=== PATIENT | female | born 1995 | race American Indian/Alaskan Native ===

== ENCOUNTER 2017-03-15 08:50 | Inpatient (IN) | payer MEDICAID ==
[2017-03-15] MEDS ORDERED: Sodium Chloride 0.9% 10 ML Syringe FLUSH PRN ×2 (10:38→10:52)
[2017-03-15] MEDS ORDERED: Carboprost Tromethamine 250 MCG/1 ML Amp IM PRN (10:38)
[2017-03-15] MEDS ORDERED: Lidocaine 1% 30 ML SDV INJECT PRN (10:38)
[2017-03-15] MEDS ORDERED: fentaNYL 100 MCG/2 ML SDV IVPUSH PRN (10:38)
[2017-03-15] MEDS ORDERED: Acetaminophen 325 MG Tab PO PRN (10:38)
[2017-03-15] MEDS ORDERED: Lactated Ringers 500 ML IV ONE (10:38)
[2017-03-15] MEDS ORDERED: Misoprostol 400 MCG (4 X 100 MCG TAB) RECTAL PRN (10:38)
[2017-03-15] MEDS ORDERED: Ondansetron 4 MG/2 ML SDV IV PRN (10:38)
[2017-03-15] MEDS ORDERED: Nalbuphine 20 MG/1 ML Amp IVPUSH PRN (10:38)
[2017-03-15] MEDS ORDERED: Butorphanol 2 MG/ML SDV IVPUSH PRN (10:38)
[2017-03-15] MEDS ORDERED: Methylergonovine 0.2 MG/1 ML Amp IM PRN (10:38)
[2017-03-15] MEDS ORDERED: Zolpidem 5 MG Tab PO PRN (10:52)
[2017-03-15] MEDS ORDERED: Benzocaine/Menthol 20%-0.5% Spray 56 GM Canister TOP PRN (10:52)
[2017-03-15] MEDS ORDERED: Simethicone 80 MG Tab.Chew PO PRN (10:52)
[2017-03-15] MEDS ORDERED: Oxytocin 10 Units/1 ML SDV IM PRN (10:52)
[2017-03-15] MEDS ORDERED: Docusate Sodium 100 MG Cap PO PRN (10:52)
[2017-03-15] MEDS ORDERED: fentaNYL 100 MCG/2 ML SDV ONE (11:37)
[2017-03-15] MEDS: Lactated Ringers 1,000 ML IV SCH ×2 (11:50→13:10)
--- NOTE | 2017-03-15 12:04 | PCM.SN ---
- Free Text/Narrative Note: Intrathecal. Sitting position, sterile prep and drape. 1 % lidocaine w bicarb for skinwheal to L2 L3 interspace, introducer, 24 pencan x 1, Pos CSF, neg Heme , neg parasthesia. 15 mcg PF sufenta, 35 mcg PF fentanyl,0.4 ml PF NS and 6 mg of 0.75% Pf bupivacaine injected after CSF aspiration. Pt to L lateral side. Procedure time 1140 to 1205
[2017-03-15] MEDS ORDERED: Oxytocin/Normal Saline 30 UNIT/500 ML BAG IV SCH (14:45)
--- NOTE | 2017-03-15 15:26 | PCM.DEL ---
L & D Note - General Info Date of Service: 03/15/17 (1512) Mother's Due Date: 03/12/17 (40 3/7 weeks gestation) - Delivery Note Labor: Spontaneous Delivery Outcome: Livebirth Delivery Mode: Spontaneous Presentation: Vertex Nuchal Cord: None Anesthesia Type: None Amniotic Fluid Description: Clear Episiotomy Type: None Laceration: None Cord: 3 Vessels Resuscitation Needed: No : Suctioned, Bulb Syringe, Warmed, [place] Used, Warmer Used Provider: Wu Burger Score 1 min: 9 Score 5 min: 9 Second Stage Interventions: Reports: Pushing Effectively Delivery Comments (Free Text/Narrative):: , OA, Viable male infant, OA over intact perineum Cord 3 vessel not around neck. placenta delivered by simple expression intact. Labia, vagina and cervix inspected and intact. Mother and infant in good condition. No complications noted. Viable male 7 lbs 3 oz , 19 inches long. - General Info Date of Service: 03/15/17 Functional Status: Reports: Pain Controlled - Review of Systems General: Reports: No Symptoms HEENT: Reports: No Symptoms Pulmonary: Reports: No Symptoms Cardiovascular: Reports: No Symptoms Gastrointestinal: Reports: No Symptoms Genitourinary: Reports: No Symptoms Musculoskeletal: Reports: No Symptoms Skin: Reports: No Symptoms Neurological: Reports: No Symptoms Psychiatric: Reports: No Symptoms - Patient Data Weight - Most Recent: 204 lb Lab Results Last 24 Hours: Laboratory Results - last 24 hr 03/15/17 03/15/17 Range/Units 10:00 11:00 WBC 11.2 H (5.0-10.0) 10^3/uL RBC 4.18 L (4.2-5.4) 10^6/uL Hgb 11.1 L D (12.0-16.0) g/dL Hct 34.7 L (37.0-47.0) % MCV 83.0 (80-100) fL MCH 26.6 L (27.0-34.0) pg MCHC 32.0 L (33.0-35.0) g/dL Plt Count 224 (150-450) 10^3/uL Urine Opiates Screen Negative (NEGATIVE) Ur Oxycodone Screen Negative (NEGATIVE) Urine Methadone Screen Negative (NEGATIVE) Ur Barbiturates Screen Negative (NEGATIVE) U Tricyclic Antidepress Negative (NEGATIVE) Ur Phencyclidine Scrn Negative (NEGATIVE) Ur Amphetamine Screen Negative (NEGATIVE) U Methamphetamines Scrn Negative (NEGATIVE) Urine MDMA Screen Negative (NEGATIVE) U Benzodiazepines Scrn Negative (NEGATIVE) Urine Cocaine Screen Negative (NEGATIVE) U Marijuana (THC) Screen Negative (NEGATIVE) Med Orders - Current: Current Medications Acetaminophen (Tylenol) 650 mg PO Q4H PRN PRN Reason: Pain (Mild 1-3) and fever Benzocaine/Menthol (Dermoplast Pain Relief [place]) 0 gm TOP Q4H PRN PRN Reason: Perineal comfort measures Butorphanol Tartrate (Stadol) 1 mg IVPUSH Q3H PRN PRN Reason: Pain Carboprost Tromethamine (Hemabate Ds) 250 mcg IM ASDIRECTED PRN PRN Reason: HEMORRHAGE Docusate Sodium (Colace) 100 mg PO BID PRN PRN Reason: Constipation Fentanyl (Sublimaze) 100 mcg IVPUSH Q1H PRN PRN Reason: Pain (moderate 4-6) Ferrous Sulfate (Ferrous Sulfate) 325 mg PO WITHBREAKFAST TL Lactated Ringer's (Ringers, Lactated) 1,000 mls @ 125 mls/hr IV ASDIRECTED TL Oxytocin/Sodium Chloride (Pitocin In Ns 30 Unit/500 Ml) 30 unit in 500 mls @ 2 mls/hr IV TITRATE TL; 2 MUNITS/MIN PRN Reason: Protocol Ibuprofen (Motrin) 800 mg PO Q8H PRN PRN Reason: Mild Pain or Fever Lidocaine HCl (Xylocaine-Mpf 1%) 10 ml INJECT ASDIRECTED PRN PRN Reason: Perineal Repair Methylergonovine Maleate (Methergine) 0.2 mg IM ASDIRECTED PRN PRN Reason: Hemorrhage Misoprostol (Cytotec) 800 mcg RECTAL ASDIRECTED PRN PRN Reason: Hemorrhage Nalbuphine HCl (Nubain) 10 mg IVPUSH Q3H PRN PRN Reason: Pain (moderate 4-6) Ondansetron HCl (Zofran) 4 mg IV Q4H PRN PRN Reason: Nausea/Vomiting Oxytocin (Pitocin) 10 unit IM ONETIME PRN PRN Reason: Bleeding Prenat Multivit/Real Estate Manager/Iron/Folic Ac ( Plus Iron) 1 each PO DAILY [facility] Simethicone (Simethicone) 80 mg PO Q4H PRN PRN Reason: Gas Sodium Chloride (Saline Flush) 10 ml FLUSH ASDIRECTED PRN PRN Reason: Keep Vein Open Sodium Chloride (Saline Flush) 10 ml FLUSH ASDIRECTED PRN PRN Reason: Keep Vein Open Zolpidem Tartrate (Ambien) 5 mg PO BEDTIME PRN PRN Reason: Insomnia Discontinued Medications Fentanyl (Sublimaze) Confirm Administered Dose 100 mcg .ROUTE .STK-MED ONE Stop: 03/15/17 11:38 Lactated Ringer's (Ringers, Lactated) 500 mls @ 125 mls/hr IV .BOLUS ONE Stop: 03/15/17 14:37 Sufentanil Citrate (Sufenta) Confirm Administered Dose 50 mcg .ROUTE .STK-MED ONE Stop: 03/15/17 11:38 - Problem List Review Problem List Initiated/Reviewed/Updated: Yes - My Orders Last 24 Hours: My Active Orders 03/15/17 10:38 Patient Status [ADT] Routine Communication Order [RC] ASDIRECTED May Shower [RC] ASDIRECTED Notify Provider Vital Signs OB [RC] ASDIRECTED Notify Provider [RC] PRN Up ad Shea [RC] ASDIRECTED Vital Signs [RC] PER UNIT ROUTINE Acetaminophen [Tylenol] 650 mg PO Q4H PRN Butorphanol [Stadol] 1 mg IVPUSH Q3H PRN Carboprost Tromethamine [Hemabate DS] 250 mcg IM ASDIRECTED PRN Lidocaine 1% [Xylocaine-MPF 1%] 10 ml INJECT ASDIRECTED PRN Methylergonovine [Methergine] 0.2 mg IM ASDIRECTED PRN Misoprostol [Cytotec] 800 mcg RECTAL ASDIRECTED PRN Nalbuphine [Nubain] 10 mg IVPUSH Q3H PRN Ondansetron [Zofran] 4 mg IV Q4H PRN Sodium Chloride 0.9% [Saline Flush] 10 ml FLUSH ASDIRECTED PRN fentaNYL [Sublimaze] 100 mcg IVPUSH Q1H PRN Electronic Heart Tones Internal [WOMSER] Per Unit Routine Peripheral IV Insertion Adult [OM.PC] Routine Saline Lock Insert [OM.PC] Routine Resuscitation Status Routine 03/15/17 10:45 Lactated Ringers [Ringers, Lactated] 1,000 ml IV ASDIRECTED 03/15/17 10:50 Peripheral IV Care [RC] . DIRECTED Pump Management, Intrathecal [RC] ASDIRECTED 03/15/17 10:52 Up ad Shea [RC] ASDIRECTED Benzocaine/Menthol [Dermoplast Pain Relief [place]] See Dose Instructions TOP Q4H PRN Docusate Sodium [Colace] 100 mg PO BID PRN Ibuprofen [Motrin] 800 mg PO Q8H PRN Oxytocin [Pitocin] 10 unit IM ONETIME PRN Simethicone 80 mg PO Q4H PRN Sodium Chloride 0.9% [Saline Flush] 10 ml FLUSH ASDIRECTED PRN Zolpidem [Ambien] 5 mg PO BEDTIME PRN Assess Lochia [WOMSER] Per Unit Routine Assess Uterine Involution [WOMSER] Per Unit Routine Breast Pump [WOMSER] Per Unit Routine Ice Therapy [OM.PC] Per Unit Routine Perineal Care [OM.PC] Per Unit Routine Peripheral IV Discontinue [OM.PC] Routine Saline Lock Insert [OM.PC] Urgent Sitz Bath [OM.PC] Per Unit Routine 03/15/17 10:57 Cooling Warming Measures [RC] ASDIRECTED 03/15/17 14:45 Oxytocin/Normal Saline [Pitocin in NS 30 UNIT/500 ML] 30 unit in 500 ml IV TITRATE 03/15/17 Breakfast Clear Liquid Diet [DIET] 03/15/17 Dinner Regular Diet [DIET] 03/16/17 06:00 CBC W/O DIFF,HEMOGRAM [HEME] Routine 03/16/17 08:00 Ferrous Sulfate 325 mg PO WITHBREAKFAST 03/16/17 09:00 Vit with Ca/FA/Iron [ Plus Iron] 1 each PO DAILY
--- NOTE | 2017-03-15 16:17 | HP ---
CHIEF COMPLAINT: "I think I am in labor." HISTORY OF PRESENT ILLNESS: Ms. Ruiz is a 21-year-old, 4, para 3-0- 0-3, female, last menstrual period unknown, EDC of 03/12/2017, EGA of 40 and 3/7 weeks' gestation by a 27-and-2/7-week ultrasound, who reports to Labor and Delivery with increasing force and frequency of contractions. She denies any nausea, vomiting, or diarrhea. No fever or chills. No hematochezia, hematemesis, or hematuria. No dysuria, frequency, or urgency with urination. No leg pain or leg edema. She is having contraction, discomfort, and also pain in her back off and on. She was seen a couple of days ago, was noted to be 1 cm dilated; now she is 3 to 4 cm, 70%, -2, mid position, and uncomfortable. PAST MEDICAL HISTORY: She denies any anemia, asthma, diabetes, cancer, hypertension, heart disease, thyroid disease, thromboembolic disease, seizure disorder, lung problems, kidney problems, breast lesions, or blood transfusions. FAMILY HISTORY: Positive for hypertension, ND, diabetes, but no history of cancer, thyroid disease, kidney problems, or lung problems. SOCIAL HISTORY: She denies any tobacco use, alcohol use, or illicit drug use. She has a significant other who is with her. OBSTETRICAL/WORKFORCE DEVELOPMENT SPECIALIST HISTORY: 1. 03/02/2012, delivery of a viable female , weighing 2778 g in [place] at 40 and 3/7 weeks' gestation via normal spontaneous vaginal delivery. 2. 05/11/2014, delivery of a viable male , weighing 2815 g via normal spontaneous vaginal delivery at 38 and 6/7 weeks' gestation. Two-vessel umbilical cord. 3. 09/06/2015, delivery of a viable female infant, weighing 3175 g at 38 and 3/7 weeks' gestation via normal spontaneous vaginal delivery in [place]. ALLERGIES: No known drug allergies. PAST SURGICAL HISTORY: She had teeth surgery at the age of 3 with some sort of anesthetic response. They felt might be from over medication. REVIEW OF SYSTEMS: All pertinent positive and negative review of systems per HPI. All other systems reviewed negative. A 10 point review of systems discussed with the patient. She has no issues. LABORATORY DATA: Blood type A negative. Antibody screen negative. Rubella immune. RPR nonreactive. Hepatitis B surface antigen negative. HIV negative. Hepatitis C nonreactive group B strep, vaginal culture not accomplished. OBJECTIVE: Vital Signs: Stable. Afebrile. HEENT: Unremarkable. Neck: Supple without adenopathy. No thyromegaly. Lungs: Clear to auscultation. No wheezing, rhonchi, or rales. Cardiovascular: Regular rate and rhythm without murmurs. Abdomen: Soft, nontender, gravid. Fundal height 30 cm. heart tones in the 130s to 140s, reactive strip, category I strip. Good accelerations noted. Back: No CVA tenderness. Genitourinary: Cervix is 3 to 4 cm dilated on admission, now 4 cm dilated, 70% effaced, -2 station. Bulging bag of blanc. Artificial rupture of membranes with clear fluid noted. Extremities: No edema, erythema, or tenderness noted. DTRs 2+/4 in all areas. No clonus. ASSESSMENT: 1. A 40-and-3/7-week intrauterine . 2. Active labor. 3. Artificial rupture of membranes with clear fluid. 4. Limited care. She had 1 visit in the office, 2 visits in Labor and Delivery. PLAN: 1. Expect vaginal delivery. 2. Urine drug screen accomplished. 3. Expect the patient to have intrathecal for pain control. 4. All questions answered. [facility] /[id number]
[2017-03-15] MEDS: Ibuprofen 800 MG Tab PO PRN (22:39)
--- NOTE | 2017-03-16 04:23 | PCM.PNPP ---
- General Info Date of Service: 03/16/17 (PPD # 1 S/P ) Functional Status: Reports: Pain Controlled, Tolerating Diet, Ambulating, Urinating - Review of Systems General: Reports: No Symptoms HEENT: Reports: No Symptoms Pulmonary: Reports: No Symptoms Cardiovascular: Reports: No Symptoms Gastrointestinal: Reports: No Symptoms Genitourinary: Reports: No Symptoms Musculoskeletal: Reports: No Symptoms Skin: Reports: No Symptoms Neurological: Reports: No Symptoms Psychiatric: Reports: No Symptoms - General Info Date of Service: 03/16/17 (PPD # 1 S/P ) - Patient Data Vital Signs - Most Recent: Last Vital Signs Temp 98.8 F 03/15/17 23:11 Pulse 102 H 03/15/17 23:11 Resp 16 03/15/17 23:11 BP 106/54 L 03/15/17 23:11 Pulse Ox 100 03/15/17 23:11 Weight - Most Recent: 204 lb I&O - Last 24 Hours: Intake & Output 03/15/17 03/15/17 03/16/17 14:59 22:59 06:59 Intake Total 1999 500 Balance 1999 500 Lab Results - Last 24 Hours: Laboratory Results - last 24 hr 03/15/17 03/15/17 Range/Units 10:00 11:00 WBC 11.2 H (5.0-10.0) 10^3/uL RBC 4.18 L (4.2-5.4) 10^6/uL Hgb 11.1 L D (12.0-16.0) g/dL Hct 34.7 L (37.0-47.0) % MCV 83.0 (80-100) fL MCH 26.6 L (27.0-34.0) pg MCHC 32.0 L (33.0-35.0) g/dL Plt Count 224 (150-450) 10^3/uL Urine Opiates Screen Negative (NEGATIVE) Ur Oxycodone Screen Negative (NEGATIVE) Urine Methadone Screen Negative (NEGATIVE) Ur Barbiturates Screen Negative (NEGATIVE) U Tricyclic Antidepress Negative (NEGATIVE) Ur Phencyclidine Scrn Negative (NEGATIVE) Ur Amphetamine Screen Negative (NEGATIVE) U Methamphetamines Scrn Negative (NEGATIVE) Urine MDMA Screen Negative (NEGATIVE) U Benzodiazepines Scrn Negative (NEGATIVE) Urine Cocaine Screen Negative (NEGATIVE) U Marijuana (THC) Screen Negative (NEGATIVE) Med Orders - Current: Current Medications Acetaminophen (Tylenol) 650 mg PO Q4H PRN PRN Reason: Pain (Mild 1-3) and fever Benzocaine/Menthol (Dermoplast Pain Relief [place]) 0 gm TOP Q4H PRN PRN Reason: Perineal comfort measures Butorphanol Tartrate (Stadol) 1 mg IVPUSH Q3H PRN PRN Reason: Pain Carboprost Tromethamine (Hemabate Ds) 250 mcg IM ASDIRECTED PRN PRN Reason: HEMORRHAGE Docusate Sodium (Colace) 100 mg PO BID PRN PRN Reason: Constipation Last Admin: 03/15/17 22:39 Dose: 100 mg Fentanyl (Sublimaze) 100 mcg IVPUSH Q1H PRN PRN Reason: Pain (moderate 4-6) Ferrous Sulfate (Ferrous Sulfate) 325 mg PO WITHBREAKFAST TL Lactated Ringer's (Ringers, Lactated) 1,000 mls @ 125 mls/hr IV ASDIRECTED TL Last Admin: 03/15/17 13:10 Dose: 125 mls/hr Oxytocin/Sodium Chloride (Pitocin In Ns 30 Unit/500 Ml) 30 unit in 500 mls @ 2 mls/hr IV TITRATE TL; 2 MUNITS/MIN PRN Reason: Protocol Last Titration: 03/15/17 18:30 Dose: 0 munits/min, 0 mls/hr Ibuprofen (Motrin) 800 mg PO Q8H PRN PRN Reason: Mild Pain or Fever Last Admin: 03/15/17 22:39 Dose: 800 mg Lidocaine HCl (Xylocaine-Mpf 1%) 10 ml INJECT ASDIRECTED PRN PRN Reason: Perineal Repair Methylergonovine Maleate (Methergine) 0.2 mg IM ASDIRECTED PRN PRN Reason: Hemorrhage Misoprostol (Cytotec) 800 mcg RECTAL ASDIRECTED PRN PRN Reason: Hemorrhage Nalbuphine HCl (Nubain) 10 mg IVPUSH Q3H PRN PRN Reason: Pain (moderate 4-6) Ondansetron HCl (Zofran) 4 mg IV Q4H PRN PRN Reason: Nausea/Vomiting Last Admin: 03/15/17 11:40 Dose: 4 mg Oxytocin (Pitocin) 10 unit IM ONETIME PRN PRN Reason: Bleeding Prenat Multivit/Attendant [place]/Iron/Folic Ac ( Plus Iron) 1 each PO DAILY TL Simethicone (Simethicone) 80 mg PO Q4H PRN PRN Reason: Gas Sodium Chloride (Saline Flush) 10 ml FLUSH ASDIRECTED PRN PRN Reason: Keep Vein Open Sodium Chloride (Saline Flush) 10 ml FLUSH ASDIRECTED PRN PRN Reason: Keep Vein Open Zolpidem Tartrate (Ambien) 5 mg PO BEDTIME PRN PRN Reason: Insomnia Discontinued Medications Fentanyl (Sublimaze) Confirm Administered Dose 100 mcg .ROUTE .STK-MED ONE Stop: 03/15/17 11:38 Last Admin: 03/15/17 22:32 Dose: Not Given Lactated Ringer's (Ringers, Lactated) 500 mls @ 125 mls/hr IV .BOLUS ONE Stop: 03/15/17 14:37 Last Admin: 03/15/17 11:25 Dose: 999 mls/hr Sufentanil Citrate (Sufenta) Confirm Administered Dose 50 mcg .ROUTE .STK-MED ONE Stop: 03/15/17 11:38 Last Admin: 03/15/17 22:32 Dose: Not Given - Infant Interaction Disposition, : in Room with Family Infant Interaction: Holding Feeding: Bottle Fed Infant Support Person: Significant Other - Recovery Exam Fundal Tone: Firm Fundal Level: 1 Fingerbreadths Below Umbilicus Fundal Placement: Midline Lochia Amount: Small Lochia Color: Rubra/Red Perineum Description: Intact, Minimal Bruising/Swelling Episiotomy/Laceration: None - Exam General: Alert, Oriented, Cooperative HEENT: Pupils Equal, Pupils Reactive, Mucous Membr. Moist/[place] Neck: Supple Lungs: Clear to Auscultation, Normal Respiratory Effort Cardiovascular: Regular Rate, Regular Rhythm, No Murmurs GI/Abdominal Exam: Normal Bowel Sounds, Soft, Non-Tender, No Distention Extremities: Normal Inspection, Normal Range of Motion, Non-Tender, No Pedal Edema Skin: Warm, Dry, Intact Wound/Incisions: Healing Well Neurological: No New Focal Deficit, Normal Gait, Normal Speech, Normal Tone Psy/Mental Status: Alert, Normal Affect, Normal Mood - Problem List Review Problem List Initiated/Reviewed/Updated: Yes - My Orders Last 24 Hours: My Active Orders 03/15/17 10:38 Patient Status [ADT] Routine May Shower [RC] ASDIRECTED Notify Provider Vital Signs OB [RC] ASDIRECTED Notify Provider [RC] PRN Up ad Shea [RC] ASDIRECTED Vital Signs [RC] 08,20 Acetaminophen [Tylenol] 650 mg PO Q4H PRN Butorphanol [Stadol] 1 mg IVPUSH Q3H PRN Carboprost Tromethamine [Hemabate DS] 250 mcg IM ASDIRECTED PRN Lidocaine 1% [Xylocaine-MPF 1%] 10 ml INJECT ASDIRECTED PRN Methylergonovine [Methergine] 0.2 mg IM ASDIRECTED PRN Misoprostol [Cytotec] 800 mcg RECTAL ASDIRECTED PRN Nalbuphine [Nubain] 10 mg IVPUSH Q3H PRN Ondansetron [Zofran] 4 mg IV Q4H PRN Sodium Chloride 0.9% [Saline Flush] 10 ml FLUSH ASDIRECTED PRN fentaNYL [Sublimaze] 100 mcg IVPUSH Q1H PRN Electronic Heart Tones Internal [WOMSER] Per Unit Routine Peripheral IV Insertion Adult [OM.PC] Routine Saline Lock Insert [OM.PC] Routine Resuscitation Status Routine 03/15/17 10:45 Lactated Ringers [Ringers, Lactated] 1,000 ml IV ASDIRECTED 03/15/17 10:50 Pump Management, Intrathecal [RC] ASDIRECTED 03/15/17 10:52 Benzocaine/Menthol [Dermoplast Pain Relief [place]] See Dose Instructions TOP Q4H PRN Docusate Sodium [Colace] 100 mg PO BID PRN Ibuprofen [Motrin] 800 mg PO Q8H PRN Oxytocin [Pitocin] 10 unit IM ONETIME PRN Simethicone 80 mg PO Q4H PRN Sodium Chloride 0.9% [Saline Flush] 10 ml FLUSH ASDIRECTED PRN Zolpidem [Ambien] 5 mg PO BEDTIME PRN Assess Lochia [WOMSER] Per Unit Routine Assess Uterine Involution [WOMSER] Per Unit Routine Breast Pump [WOMSER] Per Unit Routine Ice Therapy [OM.PC] Per Unit Routine Perineal Care [OM.PC] Per Unit Routine Peripheral IV Discontinue [OM.PC] Routine Saline Lock Insert [OM.PC] Urgent Sitz Bath [OM.PC] Per Unit Routine 03/15/17 14:45 Oxytocin/Normal Saline [Pitocin in NS 30 UNIT/500 ML] 30 unit in 500 ml IV TITRATE 03/15/17 Breakfast Clear Liquid Diet [DIET] 03/15/17 Dinner Regular Diet [DIET] 03/16/17 06:00 CBC W/O DIFF,HEMOGRAM [HEME] Routine 03/16/17 08:00 Ferrous Sulfate 325 mg PO WITHBREAKFAST 03/16/17 09:00 Vit with Ca/FA/Iron [ Plus Iron] 1 each PO DAILY - Assessment Assessment:: PPD # 1 S/P Doing well. - Plan Plan:: Continue present care Discharge to home Follow-up with Dr. Horn next week.
[2017-03-16] MEDS: Ibuprofen 800 MG Tab PO PRN (07:29)
[2017-03-16 07:34] VITALS: BP 101/70
[2017-03-16] MEDS ORDERED: Ferrous Sulfate 325 MG Tab PO SCH (08:00)
[2017-03-16] MEDS ORDERED: Prenatal Multivitamin with Calcium/Folic Acid/Iron Tab PO SCH (09:00)
[2017-03-16] MEDS ORDERED: FLU VAC QS 17-18(4YR UP)CEL/PF 60 MCG/0.5 ML Syringe IM ONE (16:15)
[2017-03-16] MEDS ORDERED: fentaNYL 100 MCG/2 ML SDV ITHECAL ONE (18:14)
--- NOTE | 2017-03-17 01:46 | DISCH ---
INDICATION FOR ADMISSION: Ms. Ruiz is a 21-year-old, 4, para 3-0-0- 3 female, who reported to Labor and Delivery at 40 and 3/7 weeks' gestation with increasing force and frequency of contractions. On admission, she was 3 to 4 cm dilated, then changed to 4 to 5 cm dilated. At that point, artificial rupture of membranes occurred with clear fluid. She tolerated her labor quite well. Once she got uncomfortable, intrathecal anesthesia was obtained. She tolerated the rest of her labor quite well. When she got to complete, she started pushing, and then she had a normal spontaneous vaginal delivery of a viable male , weighing 7 pounds 3 ounces, 19 inches long with scores of 9 at 1 minute, 9 at 5 minutes. She recovered, went to the OB floor. She tolerated the rest of her hospital stay quite well. She is afebrile. Vital signs are stable. She tolerated her diet well and ambulated quite well. She had minimal lochia. No complications occurred throughout her hospital stay. LABORATORY AND DIAGNOSTIC STUDIES: 03/15/2017, WBC 11.2, hemoglobin 11.1, hematocrit 34.7, platelet count 224,000. Urine drug screen negative. 03/16/2017, WBC 12.3, hemoglobin 9.6, hematocrit 30.7, platelet count 198,000. DISCHARGE INSTRUCTIONS: 1. Discharged to home. 2. Follow up with Dr. Laura Sanchez next week and then at 6-week checkup. 3. No douching, tampons, or intercourse for 6 weeks. 4. Discharge instructions including activity, followup, medications, diet, and wound care were discussed with the patient. She understands these and is willing to comply with these. 5. Ibuprofen 800 mg one tablet 3 times a day p.r.n. for discomfort. DISCHARGE DIAGNOSES: 1. A 40 and 3/7 weeks' intrauterine . 2. Active labor. 3. Limited care. She had 1 visit in the office, 2 visits in Labor and Delivery. 4. Artificial rupture of membranes. 5. Normal spontaneous vaginal delivery of a viable male infant weighing 7 pounds 3 ounces, 19 inches long with scores of 9 at 1 minute, 9 at 5 minutes. 6. Intrathecal anesthesia. 7. Acute anemia secondary to blood loss. [facility] /[id number]
== END 2017-03-16 18:15 | disposition home or self-care (01) | DRG 775 ==
LOC: DL.OBCHECK 08:50 → DL.OB 09:52 → OBSVTOIN 15:12 → DL.OB 15:12
PROVIDERS: ADMIT Obstetrics & Gynecology; ATTEND Obstetrics & Gynecology
PROC: 10E0XZZ Delivery of Products of Conception, External Approach (ICD-10-PCS; principal; 2017-03-15)
PROC: 10907ZC Drainage of Amniotic Fluid, Therapeutic from Products of Conception, Via Natural or Artificial Opening (ICD-10-PCS; 2017-03-15)
PROC: 00HU33Z Insertion of Infusion Device into Spinal Canal, Percutaneous Approach (ICD-10-PCS; 2017-03-15)
PROC: 3E0R3BZ Introduction of Anesthetic Agent into Spinal Canal, Percutaneous Approach (ICD-10-PCS; 2017-03-15)
DX: O99.02 Anemia complicating childbirth (principal); D62 Acute posthemorrhagic anemia; Z3A.40 40 weeks gestation of pregnancy; Z37.0 Single live birth
CPT/HCPCS: 01967; 36415; 59409; 80305; 85027; 90674; A9270-GY; J2405; J2590; J3010; J7120